=== PATIENT | male | born 1995 | race Caucasian/White ===

== ENCOUNTER 2017-01-19 15:10 | Emergency (ER) | payer MEDICAID ==
[~2017-01-19] VITALS: Ht 172.7 cm; Wt 73.0 kg
[2017-01-20] MEDS ORDERED: SULFAMETHOXAZOLE/TRIMETHOPRIM 800/160MG TABLET PO ONE (00:15)
[2017-01-20] MEDS ORDERED: BACITRACIN ZINC OINT UDPKT TOP ONE (00:15)
[2017-01-20] MEDS ORDERED: LIDOCAINE HCL 1% 20ML VIAL (Pyxis) INJ MC ONE (00:15)
[2017-01-20] MEDS ORDERED: CEPHALEXIN 500MG CAPSULE PO ONE (00:15)
[2017-01-20] MEDS ORDERED: TETANUS, DIPHTHERIA, PERTUSSIS VAC/PF 0.5ML (>7YR OLD) IM ONE (00:15)
[2017-01-20] MEDS ORDERED: IBUPROFEN 600MG TABLET PO ONE (00:15)
[2017-01-20 00:33] VITALS: BP 133/62
== END 2017-01-20 01:36 | disposition home or self-care (01) ==
LOC: ER 01-20 00:06
PROC: 0J9N0ZZ Drainage of Right Lower Leg Subcutaneous Tissue and Fascia, Open Approach (ICD-10-PCS; principal; 2017-01-20)
DX: L02.415 Cutaneous abscess of right lower limb (principal)
CPT/HCPCS: 10060; 90471; 90715; 99283; J3490; Z7610